=== PATIENT | female | born 1990 | race Caucasian/White ===

== ENCOUNTER 2022-07-21 19:08 | Emergency (ER) | payer SELFPAY ==
[2022-07-21 21:17] VITALS: BP 118/80
[2022-07-21 21:31] VITALS: BP 125/68
[2022-07-21 21:33] LABS: URINE BILIRUBIN - DIPSTICK NEGATIVE (NEGATIVE); URINE BLOOD DIPSTICK NEGATIVE (NEGATIVE); URINE COLOR YELLOW; URINE GLUCOSE - DIPSTICK NEGATIVE (NEGATIVE); URINE KETONE NEGATIVE (NEGATIVE); URINE PROTEIN - DIPSTICK NEGATIVE (NEG-TRACE); URINE SPECIFIC GRAVITY 1.025; URINE UROBILINOGEN - DIPSTICK 0.2 E.U./dL (0.2)
[2022-07-21 21:35] LABS: URINE LEUK ESTERASE MODERATE (NEGATIVE); URINE NITRITE - DIPSTICK NEGATIVE (Negative)
[2022-07-21 21:45] VITALS: BP 120/82
[2022-07-21 21:46] LABS: URINE BACTERIA FEW hpf; URINE SQUAMOUS EPITHELIAL CELL MANY EPI/hpf (0-FEW); URINE TRICHOMONAS FEW hpf
[2022-07-21 22:00] VITALS: BP 116/71
[2022-07-21] MEDS ORDERED: METRONIDAZOLE500 MG PO (22:57)
[2022-07-21 23:03] VITALS: BP 119/75
== END 2022-07-21 23:07 | disposition home or self-care (01) | DRG 759 ==
LOC: ED 19:08
PROVIDERS: Emergency Medicine
DX: A59.01 Trichomonal vulvovaginitis (principal); R82.71 Bacteriuria